=== PATIENT | female | born 1985 | race Caucasian/White ===

== ENCOUNTER 2016-09-30 15:16 | Emergency (ER) | payer OTHER ==
[~2016-09-30] VITALS: Ht 172.7 cm; Wt 86.2 kg
[~2016-09-30 15:16] MED LIST: AMOX500C PO; AMOX875T PO; CLIN-44 PO; HYDR-971 PO; NAPR550T PO
[2016-09-30 16:02] VITALS: BP 147/82
--- NOTE | 2016-09-30 16:36 | PHYS DOC ---
Past Medical History Past Medical History: No Pertinent History Past Surgical History: No Surgical History Additional Past Surgical Histo: Dental Alcohol Use: None Drug Use: None Adult General Chief Complaint Chief Complaint: DENTAL PROBLEM HPI HPI Patient is a 31 year old female who presents with mild left lower gum dental pain that began yesterday. Patient states she has a broken tooth, she states she has an appointment with an oral surgeon on this week for removal of the tooth.Patient denies any fever or trismus. Review of Systems Review of Systems Constitutional: See history of present illness Eyes: Denies change in visual acuity, redness, or eye pain [] HENT: Dental pain Musculoskeletal: Denies back pain or joint pain [] Integument: Denies rash or skin lesions [] Neurologic: Denies headache, focal weakness or sensory changes [] Endocrine: Denies polyuria or polydipsia [] Allergies Allergies Allergies Coded Allergies Type Severity Reaction Last Updated Verified No Known Drug Allergies 12/20/13 No Physical Exam Physical Exam Constitutional: Well developed, well nourished, no acute distress, non-toxic appearance. [] HENT: Normocephalic, atraumatic, bilateral external ears normal, oropharynx moist, no oral exudates, nose normal. [] Left lower wisdom tooth is broken and severely decayed, missing multiple teeth throughout her mouth. There is slight erythema along the gumline of the left lower gums. No fluctuance.Scattered dental caries throughout her teeth. Skin: Warm, dry, no erythema, no rash. [] Back: No tenderness, no CVA tenderness. [] Extremities: No tenderness, no cyanosis, no clubbing, ROM intact, no edema. [] Neurologic: Alert and oriented X 3, normal motor function, normal sensory function, no focal deficits noted. [] Psychologic: Affect normal, judgement normal, mood normal. [] Current Patient Data Vital Signs Vital Signs Date Time Temp Pulse Resp B/P Pulse Ox O2 Delivery O2 Flow Rate FiO2 09/30/16 16:02 97.6 86 18 147/82 99 Room Air 97.6 EKG EKG [] Radiology/Procedures Radiology/Procedures [] Course & Med Decision Making Course & Med Decision Making Pertinent Labs and Imaging studies reviewed. (See chart for details) Patient has infected dental caries. Discharged with antibiotics. Follow-up with her dentist on as scheduled. Dragon Disclaimer Dragon Disclaimer This electronic medical record was generated, in whole or in part, using a voice recognition dictation system. Departure Departure Impression: Primary Impression: Infected dental caries Additional Impression: Dentalgia Disposition: HOME, SELF-CARE Condition: STABLE Referrals: UNKNOWN PCP NAME (PCP) Follow-up with your dentist on as scheduled Patient Instructions: Dental Caries-Brief Additional Instructions: You were seen for infected dental caries. Follow-up with your oral surgeon on as scheduled. Scripts Hydrocodone/Apap 5-325 ([place] 5-325 Tablet)1 Each Tablet1-2 Tab PO Q4-6HRS #10 TAB Prov:KAILEE MOSELEY APRN 09/30/16 Amoxicillin 875 Mg Tablet1 Tab PO BID #20 TAB Prov:KAILEE MOSELEY APRN 09/30/16 Problem Qualifiers KAILEE MOSELEY APRN Sep 30, 2016 16:36
[2016-09-30] MEDS ORDERED: AMOX875T PO (16:41)
[2016-09-30] MEDS ORDERED: HYDR-971 PO (16:41)
== END 2016-09-30 16:48 | disposition home or self-care (01) ==
LOC: ER 15:16
DX: K02.9 Dental caries, unspecified (principal); K04.7 Periapical abscess without sinus; S02.5XXA Fracture of tooth (traumatic), initial encounter for closed fracture; X58.XXXA Exposure to other specified factors, initial encounter; Y93.89 Activity, other specified; Y92.89 Other specified places as the place of occurrence of the external cause; Y99.8 Other external cause status
CPT/HCPCS: 99283

== ENCOUNTER 2016-11-09 12:03 | Emergency (ER) | payer OTHER ==
[~2016-11-09] VITALS: Ht 175.3 cm; Wt 85.3 kg
[2016-11-09 13:00] VITALS: BP 105/60
[2016-11-09] MEDS ORDERED: LIDOCAINE 1% / SOD BICARB 8.4% 20 ML VIAL. IJ ONE (13:35)
[2016-11-09] MEDS ORDERED: AMOX500C PO (13:39)
[2016-11-09] MEDS ORDERED: HYDR-971 PO (13:39)
--- NOTE | 2016-11-09 13:39 | PHYS DOC ---
Past Medical History Past Medical History: No Pertinent History Past Surgical History: No Surgical History Additional Past Surgical Histo: Dental Alcohol Use: None Drug Use: None Adult General Chief Complaint Chief Complaint: DENTAL PROBLEM HPI HPI Patient is a 31 year old female presents emergency Department with complaint of atraumatic dental pain is been ongoing for the past 3-4 days. Patient has well-established history of poor dental health. This is her seventh visit to this emergency room in 12 months. Takes that she is waiting appointment with a dentist in [facility] who performed the sedation oral surgery. Review of Systems Review of Systems Constitutional: Denies fever or chills [] Eyes: Denies change in visual acuity, redness, or eye pain [] HENT: Denies nasal congestion or sore throat [] Respiratory: Denies cough or shortness of breath [] Cardiovascular: No additional information not addressed in HPI [] GI: Denies abdominal pain, nausea, vomiting, bloody stools or diarrhea [] : Denies dysuria or hematuria [] Musculoskeletal: Denies back pain or joint pain [] Integument: Denies rash or skin lesions [] Neurologic: Denies headache, focal weakness or sensory changes [] Endocrine: Denies polyuria or polydipsia [] Current Medications Current Medications Current Medications Medications (Trade) Dose Ordered Sig/[place] Start Time Stop Time Status Last Admin Dose Admin Lidocaine/Sodium Bicarbonate (Buffered Lidocaine 1%) 20 ml STK-MED ONCE 11/09/16 13:35 11/09/16 13:36 DC Allergies Allergies Allergies Coded Allergies Type Severity Reaction Last Updated Verified No Known Drug Allergies 12/20/13 No Physical Exam Physical Exam Constitutional: Well developed, well nourished, no acute distress, non-toxic appearance. [] HENT: Normocephalic, atraumatic, bilateral external ears normal, oropharynx moist, no oral exudates, nose normal. There is no trismus. There is widespread dental caries and very stages of decay. The area of concern is the right mandibular dentition. The second bicuspid and first molar are decayed into the gumline. There is mild gingival inflammation surrounding the area. There is no active purulent drainage or fluctuant pocket suggestive of an abscess. Eyes: PERRLA, EOMI, conjunctiva normal, no discharge. [] Neck: Normal range of motion, no tenderness, supple, no stridor. [] Cardiovascular:Heart rate regular rhythm, no murmur [] Lungs & Thorax: Bilateral breath sounds clear to auscultation [] Abdomen: Bowel sounds normal, soft, no tenderness, no masses, no pulsatile masses. [] Skin: Warm, dry, no erythema, no rash. [] Back: No tenderness, no CVA tenderness. [] Extremities: No tenderness, no cyanosis, no clubbing, ROM intact, no edema. [] Neurologic: Alert and oriented X 3, normal motor function, normal sensory function, no focal deficits noted. [] Psychologic: Affect normal, judgement normal, mood normal. [] Current Patient Data Vital Signs Vital Signs Date Time Temp Pulse Resp B/P Pulse Ox O2 Delivery O2 Flow Rate FiO2 11/09/16 13:00 97.7 80 18 97 Room Air 97.7 EKG EKG [] Radiology/Procedures Radiology/Procedures [] Course & Med Decision Making Course & Med Decision Making Pertinent Labs and Imaging studies reviewed. (See chart for details) [] Dragon Disclaimer Dragon Disclaimer This electronic medical record was generated, in whole or in part, using a voice recognition dictation system. Departure Departure Impression: Primary Impression: Dental caries Disposition: HOME, SELF-CARE Condition: GOOD Referrals: NO PCP (PCP) Patient Instructions: Dental Caries-Brief Additional Instructions: 1. Take the medication as prescribed. 2. It is very important for you to see a dentist so that she receive definitive dental care. This is your seventh visit to this emergency department in 12 Months. 3. Be sure to follow up with your dentist and [facility] or your primary care doctor should you require additional refills for medication. Scripts Hydrocodone/Apap 5-325 ([place] 5-325 Tablet)1 Each Tablet1 Tab PO PRN Q6HRS PRN PAIN #10 TAB Ref 0 Prov:AMIRA MANUEL 11/09/16 Amoxicillin 500 Mg Capsule1 Cap PO TID #30 CAP Prov:AMIRA MANUEL 11/09/16 AMIRA MANUEL Nov 09, 2016 13:39
== END 2016-11-09 13:45 | disposition home or self-care (01) ==
LOC: ER 12:03
DX: K02.9 Dental caries, unspecified (principal); K08.409 Partial loss of teeth, unspecified cause, unspecified class
CPT/HCPCS: 99283

== ENCOUNTER 2017-11-12 20:08 | Emergency (ER) | payer OTHER | END 2017-11-12 20:40 | disposition left against medical advice (07) | LOC: ER 20:08 | DX: H57.8 Other specified disorders of eye and adnexa (principal); Z53.21 Procedure and treatment not carried out due to patient leaving prior to being seen by health care provider ==

== ENCOUNTER 2018-05-19 10:47 | Emergency (ER) | payer OTHER ==
[~2018-05-19] VITALS: Ht 172.7 cm; Wt 95.3 kg
[~2018-05-19 10:47] MED LIST changes: -CLIN-44 PO; +CLIN150C14 PO; +NAPR-682 PO; -NAPR550T PO
[2018-05-19] MEDS ORDERED: CYCL5TAB PO (11:19)
[2018-05-19] MEDS ORDERED: METH4TAB2 PO (11:19)
--- NOTE | 2018-05-19 11:20 | PHYS DOC ---
Past Medical History Past Medical History: No Pertinent History Past Surgical History: No Surgical History Additional Past Surgical Histo: Dental Alcohol Use: None Drug Use: None Adult General Chief Complaint Chief Complaint: BACK PAIN - NO INJURY [facility] HPI Patient is a 33 year old female who presents with sciatica. The patient states that she was at [facility] yesterday and diagnosed with sciatica. She was given a shot of Toradol in the emergency department. She was also given a prescription for Flexeril and a another prescription that she cannot remember the name of. She states that she lost her prescriptions and has been unable to find them. She states that the pain is been ongoing for 3-4 days and has worsened. She states that the shot of Toradol has completely worn off and she no longer has pain control. Review of Systems Review of Systems Constitutional: Denies fever or chills [] Respiratory: Denies cough or shortness of breath [] Cardiovascular: No additional information not addressed in HPI [] GI: Denies abdominal pain, nausea, vomiting, bloody stools or diarrhea [] : Denies dysuria or hematuria [] Musculoskeletal: See history of present illness Integument: Denies rash or skin lesions [] Neurologic: Denies headache, focal weakness or sensory changes [] Endocrine: Denies polyuria or polydipsia [] All other systems were reviewed and found to be within normal limits, except as documented in this note. Allergies Allergies Allergies Coded Allergies Type Severity Reaction Last Updated Verified No Known Drug Allergies 12/20/13 No Physical Exam Physical Exam Constitutional: Well developed, well nourished, no acute distress, non-toxic appearance. [] Cardiovascular:Heart rate regular rhythm, no murmur [] Lungs & Thorax: Bilateral breath sounds clear to auscultation [] Abdomen: Bowel sounds normal, soft, no tenderness, no masses, no pulsatile masses. [] Skin: Warm, dry, no erythema, no rash. [] Back: tenderness to right sciatic joint, no CVA tenderness. [] Extremities: No tenderness, no cyanosis, no clubbing, ROM intact, no edema. [] Neurologic: Alert and oriented X 3, normal motor function, normal sensory function, no focal deficits noted. [] Psychologic: Affect normal, judgement normal, mood normal. [] Current Patient Data Vital Signs Vital Signs Date Time Temp Pulse Resp B/P (MAP) Pulse Ox O2 Delivery O2 Flow Rate FiO2 05/19/18 11:27 98.0 83 16 125/81 (96) 96 Room Air 98.0 EKG EKG [] Radiology/Procedures Radiology/Procedures [] Course & Med Decision Making Course & Med Decision Making Pertinent Labs and Imaging studies reviewed. (See chart for details) [] Dragon Disclaimer Dragon Disclaimer This electronic medical record was generated, in whole or in part, using a voice recognition dictation system. Departure Departure Impression: Primary Impression: Sciatic pain Disposition: HOME, SELF-CARE Condition: STABLE Referrals: NO PCP (PCP) Patient Instructions: Sciatica Additional Instructions: Take the medication as directed. Take the medrol with food. Follow up with your PCP for a recheck in 4 days if not improving or return to the ED if worsening. Scripts Cyclobenzaprine Hcl (CYCLOBENZAPRINE HCL) 5 Mg Tablet 1 TAB PO QHS, #15 TAB Prov: ANGIE FLORES APRN 05/19/18 Methylprednisolone (MEDROL) 4 Mg Tab.ds.pk 1 PKG PO UD, #1 PKG Prov: ANGIE FLORES APRN 05/19/18 ANGIE FLORES APRN May 19, 2018 11:20
[2018-05-19 11:27] VITALS: BP 125/81
== END 2018-05-19 11:37 | disposition home or self-care (01) ==
LOC: ER 10:47
DX: M54.30 Sciatica, unspecified side (principal)
CPT/HCPCS: 99283

== ENCOUNTER 2018-12-10 17:46 | Emergency (ER) | payer OTHER ==
[~2018-12-10] VITALS: Ht 172.7 cm; Wt 107.0 kg
[~2018-12-10 17:46] MED LIST changes: +CYCL5TAB PO; +HYDR-3164 PO; -HYDR-971 PO; +METH4TAB2 PO
[2018-12-10 18:05] VITALS: BP 117/64
[2018-12-10] MEDS ORDERED: CLOT30CR TP (19:11)
--- NOTE | 2018-12-10 19:12 | PHYS DOC ---
Past Medical History Past Medical History: No Pertinent History (BONNIE WARD APRN) Past Surgical History: No Surgical History Additional Past Surgical Histo: Dental (BONNIE WARD APRN) Alcohol Use: None Drug Use: None (BONNIE WARD APRN) Adult General Chief Complaint Chief Complaint: SKIN PROBLEM HPI HPI Patient is a 33 year old Female who presents with several weeks complaints of fungus to her toes on her right foot. Does report she has tried multiple creams in the past, has tried 1 antifungal cream and it helped a little bit, but shortly after stopping using it the area enlarged and itching got worse. States she has tried some steroid creams and that has not helped, and she has also tried some diabetic foot creams, as well as other wound creams. Reports no relief from any of these products. Does report she started a paint on product which is for nails to area just 3 days ago but has not had any improvement. (BONNIE WARD APRN) Review of Systems Review of Systems Constitutional: Denies fever or chills [] Eyes: Denies change in visual acuity, redness, or eye pain [] HENT: Denies nasal congestion or sore throat [] Respiratory: Denies cough or shortness of breath [] Cardiovascular: No additional information not addressed in HPI [] GI: Denies abdominal pain, nausea, vomiting, bloody stools or diarrhea [] Integument: Denies rash or skin lesions other than area between toes of right foot and to heel. [] All other systems were reviewed and found to be within normal limits, except as documented in this note. (BONNIE WARD APRN) Allergies Allergies Allergies Coded Allergies Type Severity Reaction Last Updated Verified No Known Drug Allergies 12/20/13 No (JONNATHAN MOSQUEDA DO) Physical Exam Physical Exam Constitutional: Well developed, well nourished, no acute distress, non-toxic appearance. [] Lungs & Thorax: Bilateral breath sounds clear to auscultation [] Abdomen: Bowel sounds normal, soft, no tenderness, no masses, no pulsatile masses. [] Skin: Warm, dry, no erythema, Area between right great and 2nd toe, extending to superior aspect of foot erythematous, scaly. Similar annular lesion noted to heel of foot without erythema. [] Extremities: No tenderness, no cyanosis, no clubbing, ROM intact, no edema. [] Neurologic: Alert and oriented X 3, normal motor function, normal sensory function, no focal deficits noted. [] Psychologic: Affect normal, judgement normal, mood normal. [] (BONNIE WARD APRN) Current Patient Data Vital Signs Vital Signs Date Time Temp Pulse Resp B/P (MAP) Pulse Ox O2 Delivery O2 Flow Rate FiO2 12/10/18 18:05 98.1 75 16 117/64 (81) 96 Room Air 98.1 (JONNATHAN MOSQUEDA DO) EKG EKG [] (BONNIE WARD APRN) Radiology/Procedures Radiology/Procedures [] (BONNIE WARD APRN) Course & Med Decision Making Course & Med Decision Making Discussed symptoms of tinea pedis, discussed with history of improvement when using cream, with return shows treatment duration failure. Recommend to patient continued use of cream for at least 7 days after symptoms resolved. Discussed use of OTC or Rx Medications. discussed use of topical [place] Blue as well as treatment adjunct. Patient reports understanding, in agreement with plan of care with no further question or concerns. [] (BONNIE WARD APRN) Dragon Disclaimer Dragon Disclaimer This electronic medical record was generated, in whole or in part, using a voice recognition dictation system. (BONNIE WARD APRN) Departure Departure Impression: Primary Impression: Tinea pedis Disposition: 01 HOME, SELF-CARE Condition: GOOD Referrals: UNKNOWN PCP NAME (PCP) Patient Instructions: Athlete's Foot, [id number] Scripts Clotrimazole (ATHLETIC FOOT CREAM) 30 Gm Cream..g. 30 GM TP BID, #1 EACH Prov: BONNIE WARD APRN 12/10/18 Attending Signature Attending Signature I have reviewed the PA/SUPERVISING DEPUTY's note and plan of care. I was available for consultation as needed during the patient's visit in the emergency department. I agree with the clinical impression, plan, and disposition. (JONNATHAN MOSQUEDA DO) BONNIE WARD APRN December 10, 2018 19:12 JONNATHAN MOSQUEDA DO December 11, 2018 05:24
== END 2018-12-10 19:31 | disposition home or self-care (01) ==
LOC: ER 17:46
DX: B35.3 Tinea pedis (principal)
CPT/HCPCS: 99283